=== PATIENT | male | born 1955 | race Caucasian/White ===

== ENCOUNTER → 2016-10-29 | Outpatient (CLI) | payer BC ==
[~2016-10-29] MED LIST: OPTIRAY 320 IV PRN; lisinopril PO; metformin PO; notes
[2016-10-29 13:48] LABS: BASO % 0.5 %; BASO ABS # 0.04 K/uL (0-0.2); COMPLETE YES; EOS % 2.7 %; HEMATOCRIT 41.3 % (42-52); IG% 0.1 %; LYMPH % 31.8 %; LYMPH ABS # 2.74 K/uL (1.2-3.4); MEAN CORPUSCULAR HGB CONC 34.6 g/dl (32-36); MEAN PLATELET VOLUME 10.2 fL (7.4-10.4); MONO % 6.5 %; NEUT % 58.4 %; PLATELET COUNT 174 K/uL (130-400); WHITE BLOOD COUNT 8.62 K/uL (4.8-10.8)
[2016-10-29 14:13] LABS: ALB/GLOB RATIO 1.1 (0.9-2); ALKALINE PHOSPHATASE 103 U/L (45-117); ALT/SGPT 62 U/L (12-78); AST/SGOT 49 U/L (15-37); BLOOD UREA NITROGEN 17 mg/dl (7-18); BUN/CREATININE RATIO 15.7 (10-20); CALCIUM 9.1 mg/dl (8.5-10.1); CARBON DIOXIDE 26 mmol/L (21-32); CHLORIDE 106 mmol/L (98-107); GLUCOSE 246 mg/dl (70-99); POTASSIUM 4.2 mmol/L (3.5-5.1); SODIUM 140 mmol/L (136-145)
--- NOTE | 2016-10-29 15:48 | DIAGNOSTIC IMAGING REPORT ---
ABD/PELVIS IV CONTRAST ONLY CT DOSE: 568.39 mGy.cm HISTORY: Pain LLQ ABD PAIN, R/O DIVERTICULITIS TECHNIQUE: Multiaxial CT images of the abdomen and pelvis were performed following the use of intravenous contrast. A dose lowering technique was utilized adhering to the principles of ALARA. COMPARISON STUDY: 07/04/2013 FINDINGS: Lung bases are clear. Fatty replacement of the liver. Gallbladder is negative for distention. Spleen is uniform. Mild fatty replacement of the pancreas. Small upper and lower pole right renal exophytic cysts unchanged from the prior exam. No evidence renal hydronephrosis. Bowel pattern is nonobstructive. Scattered colonic diverticulosis. No evidence for diverticulitis. Normal appendix. Bilateral fat-containing hernias. No evidence of bowel containment or obstruction. IMPRESSION: 1. Scattered colonic diverticulosis. 2. No evidence for diverticulitis. 3. Nonobstructive bowel pattern with a normal appendix. Graft 4. Small bilateral renal cysts. 5. Fatty infiltration of liver. The above report was generated using voice recognition software. It may contain grammatical, syntax or spelling errors. Electronically signed by: Jose Banks M.D. 10/29/2016 3:47 PM Dictated Date/Time: 10/29/2016 3:44 PM
== END | disposition home or self-care (01) ==
LOC: C.CTS 13:26
PROVIDERS: ATTEND Nurse Practitioner
DX: R10.32 Left lower quadrant pain (principal); R10.9 Unspecified abdominal pain

== ENCOUNTER → 2017-05-12 | Outpatient (CLI) | payer OTHER ==
[~2017-05-12] MED LIST changes: -OPTIRAY 320 IV PRN
--- NOTE | 2017-05-12 15:31 | DIAGNOSTIC IMAGING REPORT ---
LEFT LOWER EXTREMITY VENOUS DOPPLER HISTORY: LT LEG PAIN,HX OF INJURY,R/O DVT,E11.9,Z87.828 COMPARISON STUDY: None. FINDINGS: There is normal compressibility, flow, and augmentation within the left lower extremity deep venous system. There is a 12.3 x 6.4 x 1.7 cm subcutaneous slightly complex fluid collection. This contains septations and favors a hematoma. This is located within the medial left calf. IMPRESSION: No DVT within the left lower extremity. A 12.3 x 6.4 x 1.7 cm slightly complex fluid collection within the medial left calf. This favors a subcutaneous hematoma. Electronically signed by: Fermin Merino M.D. 05/12/2017 3:29 PM Dictated Date/Time: 05/12/2017 3:28 PM
--- NOTE | 2017-05-12 15:32 | DIAGNOSTIC IMAGING REPORT ---
LEFT TIBIA AND FIBULA 2 VIEWS CLINICAL HISTORY: Left leg pain. FINDINGS: AP and lateral views of the left tibia and obtained. No prior studies are available for comparison at the time of dictation. The skeletal structures are well mineralized for age. There is no radiographic evidence of left tibial or fibular fracture. The knee and ankle joints are grossly maintained. There are dorsal and plantar calcaneal enthesophytes. Chronic posttraumatic change is suggested in the distal fibula. Soft tissue edema is present throughout the left lower extremity. IMPRESSION: 1. Soft tissues swelling with no radiographic evidence of acute left tibial or fibular fracture. 2. Question chronic posttraumatic change in the distal fibula. Correlation with the patient's medical history will be required. Electronically signed by: Greg Cedillo M.D. 05/12/2017 3:30 PM Dictated Date/Time: 05/12/2017 3:29 PM
== END | disposition home or self-care (01) ==
LOC: C.ULTRBC 14:55
PROVIDERS: ATTEND Nurse Practitioner Family
DX: M79.605 Pain in left leg (principal); Z87.828 Personal history of other (healed) physical injury and trauma; E11.9 Type 2 diabetes mellitus without complications